=== PATIENT | female | born 1970 ===

== ENCOUNTER 2021-09-29 07:45 | Inpatient (IN) | payer OTHER ==
[~2021-09-29] VITALS: Ht 170.2 cm; Wt 89.8 kg
[2021-10-01] MEDS ORDERED: ZOVIRAX800 MG (08:55)
== END 2021-10-03 09:41 | disposition home or self-care (01) | DRG 743 ==
LOC: O/R 10-01 05:59 → OB/GYN 10-01 05:59
PROVIDERS: ADMIT Obstetrics & Gynecology; ATTEND Obstetrics & Gynecology
PROC: 0UT20ZZ Resection of Bilateral Ovaries, Open Approach (ICD-10-PCS; 2021-10-01)
PROC: 0UT70ZZ Resection of Bilateral Fallopian Tubes, Open Approach (ICD-10-PCS; 2021-10-01)
PROC: 0UT90ZZ Resection of Uterus, Open Approach (ICD-10-PCS; principal; 2021-10-01 07:00)
DX: D25.1 Intramural leiomyoma of uterus (principal); D25.2 Subserosal leiomyoma of uterus; N72 Inflammatory disease of cervix uteri; N70.11 Chronic salpingitis; N83.292 Other ovarian cyst, left side; N83.291 Other ovarian cyst, right side; R10.2 Pelvic and perineal pain; N93.8 Other specified abnormal uterine and vaginal bleeding

== ENCOUNTER 2021-10-13 04:11 | Inpatient (IN) | payer OTHER ==
[~2021-10-13] VITALS: Ht 14.5 cm; Wt 89.4 kg
[~2021-10-13 04:11] MED LIST: ZOVIRAX800 MG
[2021-10-14] MEDS ORDERED: ZOVIRAX800 MG (09:15)
== END 2021-10-16 11:23 | disposition home or self-care (01) | DRG 907 ==
LOC: ER 04:11 → OB/GYN 21:27 → O/R 21:27 → OB/GYN 10-14 01:03
PROVIDERS: ADMIT Obstetrics & Gynecology; ATTEND Obstetrics & Gynecology
PROC: 0W3R0ZZ Control Bleeding in Genitourinary Tract, Open Approach (ICD-10-PCS; 2021-10-13)
PROC: 30233N1 Transfusion of Nonautologous Red Blood Cells into Peripheral Vein, Percutaneous Approach (ICD-10-PCS; 2021-10-13)
PROC: 04QF0ZZ Repair Left Internal Iliac Artery, Open Approach (ICD-10-PCS; principal; 2021-10-13 22:00)
DX: N99.840 Postprocedural hematoma of a genitourinary system organ or structure following a genitourinary system procedure (principal); S35.513A Injury of unspecified iliac artery, initial encounter; D64.9 Anemia, unspecified; N93.8 Other specified abnormal uterine and vaginal bleeding; Z90.710 Acquired absence of both cervix and uterus